=== PATIENT | female | born 1965 | race Caucasian/White ===

== ENCOUNTER → 2020-01-03 08:45 | Outpatient (CLI) | payer BC, SELFPAY ==
--- NOTE | ~2020-01-03 | MR_ITS ---
EXAMINATION: MR shoulder RT wo con DATE: 01/03/2020 09:21 INDICATION: Right shoulder pain. TECHNIQUE: Magnetic resonance imaging (MRI) of the right shoulder was performed without intravenous c ontrast. Sequences included axial PD-weighted FS FSE, coronal oblique PD-weighted FS FSE and T2-weigh gracie FS FSE, and sagittal oblique T2-weighted FS FSE and T1-weighted FSE. COMPARISON: Right shoulder radiographs 06/15/2019 FINDINGS: Coracoacromial arch: The acromion undersurface is curved in morphology (type II). There is mild acromioclavicular joint os teoarthritis. There is mild subacromial/subdeltoid bursitis. Rotator cuff: There is mild supraspinatus and infraspinatus tendinopathy. Teres minor tendon is normal. There is mi ld subscapularis tendinopathy. No tear. There is no asymmetric fatty atrophy of the rotator cuff musc le bellies. Biceps tendon and glenoid labrum: Biceps tendon is in bicipital groove. Intra-articular biceps tendon is normal. The glenoid labrum is normal. Fluid: There is no glenohumeral joint effusion. Bones/cartilage: Glenoid cartilage is normal. Humeral head cartilage is normal. IMPRESSION: 1. Mild rotator cuff tendinopathy. No tear. 2. Mild subacromial/subdeltoid bursitis. 3. Mild acromioclavicular joint osteoarthritis. Reviewed, dictated and finalized at location A.
== END ==
PROVIDERS: Visit Provider Nurse Practitioner Adult Health
DX: S43.431A Superior glenoid labrum lesion of right shoulder, initial encounter (principal); X58.XXXA Exposure to other specified factors, initial encounter; M75.51 Bursitis of right shoulder; M19.011 Primary osteoarthritis, right shoulder
CPT/HCPCS: 73221

== ENCOUNTER → 2020-01-15 10:20 | Outpatient (CLI) | payer BC, SELFPAY ==
--- NOTE | ~2020-01-15 | MR_ITS ---
EXAMINATION: MR cervical spine wo con EXAM DATE: 01/15/2020 11:28 INDICATION: Neck pain, symptoms 6 months, right shoulder pain bilateral arm pain. TECHNIQUE: Multi-sequential, multiplanar MR images of the cervical spine were obtained without contra st. Axial T2, axial T2 MERGE sequence. Sagittal T1, T2, T2 fat saturation images also obtained. Com parison is made to prior examination from 01/06/2018. FINDINGS: There is mild disc disease from C4 through C7. The spinal cord signal intensity and intrin sic morphology is normal. Cervicomedullary junction is normal in appearance. There are no suspicious marrow signal abnormalities. Paraspinal soft tissue is unremarkable. Level by level evaluation: C2-C3: Disc does not extend beyond the endplate margin. Uncovertebral joint arthropathy: Mild left. Facet joint arthropathy: Mild to moderate bilateral. Neural foraminal stenosis: Mild left. Central canal stenosis: No stenosis. C3-C4: Disc does not extend beyond the endplate margin. Uncovertebral joint arthropathy: Minimal bilateral. Facet joint arthropathy: Mild to moderate bilateral. Neural foraminal stenosis: No stenosis. Central canal stenosis: No stenosis. C4-C5: Disc does not extend beyond the endplate margin. Uncovertebral joint arthropathy: None. Facet joint arthropathy: Mild to moderate bilateral. Neural foraminal stenosis: No stenosis. Central canal stenosis: No stenosis. C5-C6: There is a minimal diffuse disc bulge. Uncovertebral joint arthropathy: Mild bilateral. Facet joint arthropathy: Mild bilateral. Neural foraminal stenosis: No stenosis. Central canal stenosis: No stenosis. C6-C7: There is a mild diffuse disc bulge. Uncovertebral joint arthropathy: Mild left, mild to moderate right. Facet joint arthropathy: Mild. Neural foraminal stenosis: Mild right. Central canal stenosis: No stenosis. C7-T1: Disc does not extend beyond the endplate margin. Uncovertebral joint arthropathy: None. Facet joint arthropathy: Mild bilateral. Neural foraminal stenosis: No stenosis. Central canal stenosis: No stenosis. Compared to 2018, difficult to appreciate any significant interval change. IMPRESSION: 1. Mild cervical spondylosis. Reviewed, dictated and finalized at location A.
== END ==
PROVIDERS: Visit Provider Nurse Practitioner Adult Health
DX: M47.892 Other spondylosis, cervical region (principal)
CPT/HCPCS: 72141

== ENCOUNTER 2022-03-28 01:34 | Day surgery (SDC) | payer BC, SELFPAY ==
[2022-03-13 14:36] VITALS: BMI 25.8
[2022-03-28 08:25] VITALS: BP 132/76; PULSE 73; RESP 20; TEMP 36; O2SAT 100; BMI 23.8
[2022-03-28] MEDS: LACTATED RINGERS 1,000 ML 150 ML IV CONT (08:35)
--- NOTE | 2022-03-28 08:58 | PM.HPGS ---
History of Present Illness History of Present Illness Consent: Risks, benefits, and alternatives have been discussed and questions answered. Patient agrees to proceed with procedure. Chief complaint: neoplasm screening Narrative: Clementina Moreau is a 56 year old female Presents for screening colonoscopy. Patient's current weight appetite and bowel movements are normal. Patient denies abdominal pain. She has had no bleeding. Family history is noncontributory. Review of Systems Review of Systems: Review of systems noncontributory. [facility] Past Medical History Medical History (Updated 03/28/22 @ 08:59 by Bry Solis MD) Decreased libido Insomnia Neck pain Screening for colon cancer Surgical History Surgical History (Updated 02/01/22 @ 11:55 by Yas Ramires PA-C) H/O: hysterectomy Hx of foot surgery Family History Family History (Updated 02/01/22 @ 11:27 by Fozia Serna, ORESTES) Father Hypertension Heart disease Cerebrovascular accident Mother Cervical cancer Hypertension Other Diabetes mellitus Family history of cardiovascular disease Family history of malignant neoplasm Social History Social History (Updated 02/01/22 @ 11:28 by Fozia Serna, RN) Smoking status: Never smoker Alcohol intake: former Substance use: never Substance use type: does not use Spiritual care concerns: No Meds Home Medications and Allergies Home Medications Medication Instructions Recorded Confirmed Type celecoxib 200 mg capsule (Celebrex) 200 mg PO DAILY #30 caps 02/01/22 03/13/22 Rx sod picosulf 10 mg-magnes 3.5 160 ml PO DAILY 2 doses #320 mL 02/06/22 03/28/22 Rx gram-citric 12 gram/160 mL oral solution (Clenpiq) trazodone 100 mg tablet 200 mg PO QHS #60 tabs 03/25/22 03/28/22 Rx Allergies Allergy/AdvReac Type Severity Reaction Status Date / Time No Known Allergies Allergy Unknown Verified 03/28/22 08:23 Vital Signs Vital Signs - 24 hr 03/28/22 08:25 Temperature 96.8 F L Pulse Rate 73 Respiratory Rate 20 Blood Pressure 132/76 Pulse Oximetry 100 Oxygen Delivery Room Air Exam Narrative: Physical exam reveals patient to be alert. Vital signs stable. HEENT exam is unremarkable. Patient is anicteric. Lungs are clear to auscultation and percussion. Heart is without murmur or extra sounds. Abdomen bowel sounds are present soft nontender with no organomegaly. Digital external rectal exam is normal. Assessment and Plan Assessment and plan (1) Encounter for screening colonoscopy: Code(s): Z12.11 - Encounter for screening for malignant neoplasm of colon Status: Acute Assessment and Plan: Patient presents for screening colonoscopy. appears to be at average risk for colon polyps.
--- NOTE | 2022-03-28 09:02 | P.PNAN_ITS ---
Anes - Initial Pre Proc Eval Procedure: Operation Date: 03/28/22 09:00 Proposed Procedures p Screening Colonoscopy - Bry Solis MD Date/Time: 03/28/22 09:02 Surgeon: Bry Solis MD Pre Op Diagnosis: neoplasm screening Patient Data Age: 56 Gender: F Height: 1.57 m Weight: 59.2 kg Last Vital Signs Temp 96.8 F L 03/28/22 08:25 Pulse 73 03/28/22 08:25 Resp 20 03/28/22 08:25 BP 132/76 03/28/22 08:25 Pulse Ox 100 03/28/22 08:25 O2 Del Method Room Air 03/28/22 08:25 Allergies Allergy/AdvReac Type Severity Reaction Status Date / Time No Known Allergies Allergy Unknown Verified 03/28/22 08:23 Home Medications Medication Instructions Recorded Confirmed Type celecoxib 200 mg capsule (Celebrex) 200 mg PO DAILY #30 caps 02/01/22 03/13/22 Rx sod picosulf 10 mg-magnes 3.5 160 ml PO DAILY 2 doses #320 mL 02/06/22 03/28/22 Rx gram-citric 12 gram/160 mL oral solution (Clenpiq) trazodone 100 mg tablet 200 mg PO QHS #60 tabs 03/25/22 03/28/22 Rx Patient hx anesthesia problems: none Family hx anesthesia problems: none Results Review: All pre-operative results and documents have been reviewed as part of the pre- operative evaluation. [facility] Past Medical History Medical History (Updated 03/28/22 @ 08:59 by Bry Solis MD) Decreased libido Insomnia Neck pain Screening for colon cancer Surgical History Surgical History (Updated 02/01/22 @ 11:55 by Yas Ramires PA-C) H/O: hysterectomy Hx of foot surgery Family History Family History (Updated 02/01/22 @ 11:27 by Fozia Serna, ORESTES) Father Hypertension Heart disease Cerebrovascular accident Mother Cervical cancer Hypertension Other Diabetes mellitus Family history of cardiovascular disease Family history of malignant neoplasm Social History Social History (Updated 02/01/22 @ 11:28 by Fozia Serna, ORESTES) Smoking status: Never smoker Alcohol intake: former Substance use: never Substance use type: does not use Spiritual care concerns: No Anes - Eval Final PreProcedure Day of Procedure 03/28/22 09:02 Patient weight: normal Heart: regular rate and rhythm Lungs: clear to auscultation Airway: Mallampati scale class II Neurological: alert and oriented Last oral intake: >/= 8 hours ASA classification: II Emergent: no Anesthetic plan: proceed Anesthesia type and monitoring: general GIVS and standard monitoring Results Review: All pre-operative results and documents have been reviewed as part of the pre- operative evaluation. Informed Consent: The patient's anesthetic plan and its attendant risks and benefits were discussed with the patient/family/POA. Questions were solicited and answers provided to the satisfaction of the patient/family/POA.
[2022-03-28 09:30] VITALS: BP 92/56; PULSE 67; RESP 16; O2SAT 95
[2022-03-28 09:40] VITALS: BP 111/75; PULSE 72; RESP 17; O2SAT 97
[2022-03-28 09:50] VITALS: BP 111/76; PULSE 62; RESP 17; O2SAT 100
== END 2022-03-28 10:08 | disposition home or self-care (01) ==
PROVIDERS: PCP Physician Assistant Medical; Visit Provider Internal Medicine Gastroenterology
PROC: 0DJD8ZZ Inspection of Lower Intestinal Tract, Via Natural or Artificial Opening Endoscopic (ICD-10-PCS; CPT 45378; principal; 2022-03-28 09:00)
DX: Z12.11 Encounter for screening for malignant neoplasm of colon (principal)
CPT/HCPCS: 45378; J2704; J7120